=== PATIENT | female | born 1970 | race African-American/Black ===

== ENCOUNTER 2017-02-07 22:02 | Emergency (ER) | payer OTHER ==
[~2017-02-07 22:02] MED LIST: ABILIFY MAINTE400 M1 IM; ACETAMINOPHEN325 M1 PO; ADVAIR 100-501 EACH INH; ADVAIR 250-501 EACH INH; ALBUTEROL INHAL17 GM; ALBUTEROL2.5 MG/0.5 INH; AMBIEN 10 MG TA10 MG PO; APAP/CODEINE ELI5 M1 OR; ASPIR 8181 MG PO; ASPIRIN EC81 M1; ATIVAN2 MG PO; BECLOMETHASONE; CARISOPRODOL 3350 MG PO; CHLORPROMAZINE200 MG PO; CIPROFLOXACIN500 M3; CLARINEX-D 121 EACH PO; CLEOCIN HCL150 MG PO; COLACE100 MG PO; DOXYCYCLINE 10100 MG PO; FEOSOL325 M1 PO; FLAGYL500 MG PO; GEODON80 MG PO; GLUCOPHAGE1000 MG PO; HUMALOG100 UNIT/1 SUBQ; HUMULIN 70100 UNIT/2; HUMULINR100; HYDROCHLOROTHIA25 M1 PO; IBUPROFEN 600600 M1 PO; INVEGA6 MG PO; INVEGA9 MG; K-DUR10 ME1 PO; LANTUS; LANTUS SUBQ; LASIX 40 MG TAB40 M1 PO; LEVAQUIN 500 M500 M1 PO; LOTRIMIN30 GM; METFORMIN HCL500 MG PO; NEURONTIN 300M300 M2 PO; NORCO 5-325 TA1 EACH PO; NOVOLOG100 UNIT/1; NOVOLOG100 UNIT/1 SUBQ; NYSTATIN 1100000 U/M PO; OMEGA-31000 MG; OMEPRAZOLE20 M2; PERCOCET 5-3251 EACH PO; PREDNISONE 20 M20 MG PO; PRINIVIL10 MG PO; PROTONIX40 M2; PROTONIX40 M2 PO; PYRIDIUM200 M1; SIMVASTATIN20 MG PO; SINGULAIR 10 MG10 M1 PO; THORAZINE PO; TOPAMAX50 MG PO; TRILEPTAL600 MG PO; ULTRAM 50MG TAB50 MG PO; VICODIN 5-5001 EACH PO; ZPAK PO; [UNRECOGNIZED DRUG - OTHER]
== END 2017-02-07 22:22 | disposition left against medical advice (07) ==
LOC: ER 22:02
DX: Z53.21 Procedure and treatment not carried out due to patient leaving prior to being seen by health care provider (principal)

== ENCOUNTER 2019-03-02 20:09 | Emergency (ER) | payer OTHER ==
[~2019-03-02] VITALS: Ht 167.6 cm; Wt 131.1 kg
[~2019-03-02 20:09] MED LIST changes: +MAGOX 400400 MG PO; +VITAMIN D1000 UNI1 PO
[2019-03-02] MEDS ORDERED: VENTOLIN HFA 1818 GM INH (21:56)
[2019-03-02] MEDS ORDERED: BENADRYL25 MG PO (21:56)
[2019-03-02] MEDS ORDERED: LISINOPRIL10 MG PO (21:56)
[2019-03-02] MEDS ORDERED: LANTUS SOL100 UNIT/1 SUBQ (21:56)
[2019-03-02] MEDS ORDERED: NEBULIZER MISCELL (21:56)
[2019-03-02] MEDS ORDERED: FAMOTIDINE 20 M20 MG PO (21:56)
[2019-03-02] MEDS ORDERED: CORTISONE60 GM TOP (21:56)
[2019-03-02] MEDS ORDERED: HUMALOG KW200 UNIT/1 SUBQ (21:56)
[2019-03-02] MEDS ORDERED: ALBUTEROL2.5 MG/31 INH (21:56)
[2019-03-02 22:15] VITALS: BP 150/78
== END 2019-03-02 22:16 | disposition home or self-care (01) ==
LOC: ER 20:09
DX: L50.9 Urticaria, unspecified (principal); T38.3X5A Adverse effect of insulin and oral hypoglycemic [antidiabetic] drugs, initial encounter; Y92.89 Other specified places as the place of occurrence of the external cause; Z76.0 Encounter for issue of repeat prescription; E11.9 Type 2 diabetes mellitus without complications; E78.00 Pure hypercholesterolemia, unspecified; I10 Essential (primary) hypertension; F20.9 Schizophrenia, unspecified; J44.9 Chronic obstructive pulmonary disease, unspecified; M19.90 Unspecified osteoarthritis, unspecified site; F17.210 Nicotine dependence, cigarettes, uncomplicated; Z86.73 Personal history of transient ischemic attack (TIA), and cerebral infarction without residual deficits; Z86.718 Personal history of other venous thrombosis and embolism; Z86.711 Personal history of pulmonary embolism; Z88.0 Allergy status to penicillin; Z88.2 Allergy status to sulfonamides; Z88.8 Allergy status to other drugs, medicaments and biological substances; Z91.041 Radiographic dye allergy status; Z91.040 Latex allergy status

== ENCOUNTER 2019-05-04 23:15 | Emergency (ER) | payer OTHER ==
[~2019-05-04] VITALS: Ht 165.1 cm; Wt 113.4 kg
[~2019-05-04 23:15] MED LIST changes: +ALBUTEROL2.5 MG/31 INH; +BENADRYL25 MG PO; +CORTISONE60 GM TOP; +FAMOTIDINE 20 M20 MG PO; +HUMALOG KW200 UNIT/1 SUBQ; +LANTUS SOL100 UNIT/1 SUBQ; +LISINOPRIL10 MG PO; +NEBULIZER MISCELL; +VENTOLIN HFA 1818 GM INH
[2019-05-05 00:34] VITALS: BP 137/72
== END 2019-05-05 00:34 | disposition left against medical advice (07) ==
LOC: ER 23:15
DX: Z04.1 Encounter for examination and observation following transport accident (principal); E11.8 Type 2 diabetes mellitus with unspecified complications; Z79.4 Long term (current) use of insulin; E78.00 Pure hypercholesterolemia, unspecified; I10 Essential (primary) hypertension; F31.9 Bipolar disorder, unspecified; J45.909 Unspecified asthma, uncomplicated; M19.90 Unspecified osteoarthritis, unspecified site; E78.5 Hyperlipidemia, unspecified; F17.210 Nicotine dependence, cigarettes, uncomplicated; Z88.0 Allergy status to penicillin; Z88.2 Allergy status to sulfonamides; Z91.041 Radiographic dye allergy status; Z91.040 Latex allergy status; Z88.8 Allergy status to other drugs, medicaments and biological substances